=== PATIENT | male | born 1945 | race Hispanic/Latino ===

== ENCOUNTER → 2017-07-03 | Outpatient (CLI) | payer OTHER | END | disposition home or self-care (01) | LOC: OIH 11:37 | PROVIDERS: ATTEND Family Medicine | DX: I10 Essential (primary) hypertension (principal); J47.9 Bronchiectasis, uncomplicated | CPT/HCPCS: 71046 ==

== ENCOUNTER 2018-05-03 07:59 | Day surgery (SDC) | payer OTHER ==
[2018-05-01 09:45] VITALS: BP 148/93
[2018-05-01 09:46] LABS: EOSINOPHILS % (AUTO) 1.3 % (0.0-8.0); LYMPHOCYTES % (AUTO) 23.2 % (21.0-51.0); MEAN CORPUSCULAR HEMOGLOBIN 31.3 pg (27.0-33.0); MEAN CORPUSCULAR HGB CONC 33.2 g/dL (32.0-36.0); MEAN CORPUSCULAR VOLUME 94.2 fL (79-99); MONOCYTES % (AUTO) 7.7 % (3.0-13.0); NEUTROPHILS % (AUTO) 66.8 % (40.0-77.0); PLATELET COUNT (AUTO) 227 K/uL (130-400); RED BLOOD CELL COUNT(AUTO) 5.73 MIL/uL (4.50-6.20); RED CELL DISTRIBUTION WIDTH 15.9 % (11.0-15.5); WHITE BLOOD COUNT (AUTO) 7.5 K/uL (4.8-10.8)
[2018-05-01 09:52] LABS: CREATININE 1.1 mg/dL (0.5-1.5); POTASSIUM 4.5 mmol/L (3.5-5.1)
[2018-05-01 09:58] LABS: INR 0.98 (0.85-1.15); PARTIAL THROMBOPLASTIN TIME 28.5 SEC (26.3-35.5); PROTHROMBIN TIME 10.3 SEC (9.6-11.6)
[~2018-05-03] VITALS: Ht 188 cm; Wt 102.0 kg
[2018-05-03] VITALS (9 sets, daily range): BP systolic 94–131; BP diastolic 54–85
[~2018-05-03 07:59] MED LIST: ALBU0.63 IH; ALBU8.5H8 IH; AMLO5TAB4 PO; APIX5TAB PO; ATOR20TA PO; FURO20TA6 PO; HYDR-4060 PO; LISI40TA4 PO; METO-409 PO; SODIUM CHLORIDE 0.9% 1000ML 1,000 ML IV SCH; TRAZ-185 PO; UMEC1DIS IH
[2018-05-03] MEDS ORDERED: LIDOCAINE HCL 2% 20ML ONE (10:14)
[2018-05-03] MEDS ORDERED: MIDAZOLAM HCL 1 MG/ML 2ML VIAL ONE ×4 (10:38→11:41)
[2018-05-03] MEDS ORDERED: MEPERIDINE-PF 25 MG/ML SYG ONE ×4 (10:38→11:41)
[2018-05-03] MEDS ORDERED: HEPARIN SODIUM 1000UNIT/ML 10ML VIAL ONE (11:13)
== END 2018-05-03 16:15 | disposition home or self-care (01) ==
LOC: DAH 07:59
PROVIDERS: ATTEND Internal Medicine Cardiovascular Disease
DX: I48.3 Typical atrial flutter (principal); I07.1 Rheumatic tricuspid insufficiency; Z79.01 Long term (current) use of anticoagulants; J44.9 Chronic obstructive pulmonary disease, unspecified; I10 Essential (primary) hypertension; E78.5 Hyperlipidemia, unspecified; Z98.890 Other specified postprocedural states; Z79.899 Other long term (current) drug therapy; I45.2 Bifascicular block
CPT/HCPCS: 36415; 80048; 85025; 85610; 85730; 93005; 93613; 93621; 93653; A4606; A4649; C1730 ×2; C1732; C1893; C1894 ×2; J1644 ×2; J2175 ×3; J2250 ×3; J3490; 99156; 99157

== ENCOUNTER → 2019-02-18 | Outpatient (CLI) | payer OTHER ==
[~2019-02-18] MED LIST changes: +IOHEXOL-350 50ML VIAL IV ONE; -SODIUM CHLORIDE 0.9% 1000ML 1,000 ML IV SCH
== END | disposition home or self-care (01) ==
LOC: RAH 08:21
PROVIDERS: ATTEND Urology
DX: N20.0 Calculus of kidney (principal); R31.0 Gross hematuria; M47.815 Spondylosis without myelopathy or radiculopathy, thoracolumbar region; I70.0 Atherosclerosis of aorta; K57.90 Diverticulosis of intestine, part unspecified, without perforation or abscess without bleeding; K43.9 Ventral hernia without obstruction or gangrene; N32.89 Other specified disorders of bladder; N13.30 Unspecified hydronephrosis; N13.4 Hydroureter
CPT/HCPCS: 74178; Q9967

== ENCOUNTER → 2019-04-04 | Outpatient (CLI) | payer OTHER | END | disposition home or self-care (01) | LOC: RAH 12:54 | PROVIDERS: ATTEND Family Medicine | DX: C67.9 Malignant neoplasm of bladder, unspecified (principal); I70.90 Unspecified atherosclerosis; M47.815 Spondylosis without myelopathy or radiculopathy, thoracolumbar region | CPT/HCPCS: 71260; Q9967 ==

== ENCOUNTER → 2019-07-01 | Outpatient (CLI) | payer OTHER ==
[~2019-07-01] MED LIST changes: -IOHEXOL-350 50ML VIAL IV ONE
== END | disposition home or self-care (01) ==
LOC: OIH 09:31
PROVIDERS: ATTEND Family Medicine
DX: M47.816 Spondylosis without myelopathy or radiculopathy, lumbar region (principal); M48.061 Spinal stenosis, lumbar region without neurogenic claudication; M25.78 Osteophyte, vertebrae; M47.812 Spondylosis without myelopathy or radiculopathy, cervical region; M48.02 Spinal stenosis, cervical region; M46.92 Unspecified inflammatory spondylopathy, cervical region; M46.96 Unspecified inflammatory spondylopathy, lumbar region
CPT/HCPCS: 72040; 72100

== ENCOUNTER → 2021-06-24 | Outpatient (CLI) | payer MEDICARE ==
[~2021-06-24] MED LIST changes: -LISI40TA4 PO; +LISI40TA9 PO
== END | disposition home or self-care (01) ==
LOC: RAH 06-18 15:26
PROVIDERS: ATTEND Pain Medicine Interventional Pain Medicine
DX: M47.812 Spondylosis without myelopathy or radiculopathy, cervical region (principal); M54.17 Radiculopathy, lumbosacral region; M51.36 Other intervertebral disc degeneration, lumbar region; Z98.1 Arthrodesis status; Z98.890 Other specified postprocedural states
CPT/HCPCS: 72040; 72100

== ENCOUNTER 2021-09-09 07:52 | Day surgery (SDC) | payer MEDICARE ==
[2021-09-07 12:48] LABS: BASOPHILS % (AUTO) 0.6 % (0.0-5.0); EOSINOPHILS % (AUTO) 0.9 % (0.0-8.0); HEMATOCRIT 45.8 % (42-54); LYMPHOCYTES % (AUTO) 8.4 % (21.0-51.0); MONOCYTES % (AUTO) 10.7 % (3.0-13.0); NEUTROPHILS % (AUTO) 78.8 % (40.0-77.0); PLATELET COUNT (AUTO) 157 K/uL (130-400); RED BLOOD CELL COUNT(AUTO) 4.58 MIL/uL (4.50-6.20); RED CELL DISTRIBUTION WIDTH 13.7 % (11.0-15.5); WHITE BLOOD COUNT (AUTO) 10.6 K/uL (4.8-10.8)
[2021-09-07 13:03] LABS: CREATININE 1.7 mg/dL (0.5-1.5); POTASSIUM 4.2 mmol/L (3.5-5.1)
[2021-09-07 13:44] LABS: INR 0.99 (0.85-1.15); PARTIAL THROMBOPLASTIN TIME 25.6 SEC (26.3-35.5); PROTHROMBIN TIME 10.3 SEC (9.6-11.6)
[2021-09-08 17:51] VITALS: BP 123/54
[2021-09-09] VITALS (9 sets, daily range): BP systolic 146–162; BP diastolic 56–85
[~2021-09-09] VITALS: Ht 185.4 cm; Wt 83.5 kg
[~2021-09-09 07:52] MED LIST changes: +0.9% NACL 500ML IV.SOLN 500 ML IV SCH; -ALBU8.5H8 IH; +ALBUTEROL RESCUE IH; -AMLO5TAB4 PO; +DIAZ5TAB4 PO; +FLUT1BLS3 IH; -FURO20TA6 PO; -HYDR-4060 PO; +HYDR-4064 PO; +KETO10 PO; +TESTOSTERONE IM; -TRAZ-185 PO; -UMEC1DIS IH
[2021-09-09] MEDS ORDERED: 0.9%NACL 1000ML 1,000 ML IV ONE (09:02)
[2021-09-09] MEDS ORDERED: HEPARIN 10,000 UNIT/10ML (1,000 UNIT/ML) VIAL ONE (10:54)
[2021-09-09] MEDS ORDERED: LIDOCAINE HCL 1% MDV 50ML VIAL ONE (10:55)
[2021-09-09] MEDS ORDERED: MIDAZOLAM HCL 1 MG/ML 2ML VIAL ONE ×3 (10:55→13:33)
[2021-09-09] MEDS ORDERED: MEPERIDINE-PF 25 MG/ML SYG ONE ×3 (10:55→13:34)
[2021-09-09] MEDS ORDERED: ISOPROTERENOL HCL 0.2 MG/ML AMP/VIAL/BAG ONE (13:02)
[2021-09-09] MEDS ORDERED: ACETAMINOPHEN 325 MG TAB ONE (15:00)
== END 2021-09-09 17:20 | disposition home or self-care (01) ==
LOC: DAH 07:52
PROVIDERS: ATTEND Internal Medicine Cardiovascular Disease
DX: I48.3 Typical atrial flutter (principal); I45.10 Unspecified right bundle-branch block; I10 Essential (primary) hypertension; J44.9 Chronic obstructive pulmonary disease, unspecified; E78.5 Hyperlipidemia, unspecified; Z87.891 Personal history of nicotine dependence; Z85.51 Personal history of malignant neoplasm of bladder; Z92.21 Personal history of antineoplastic chemotherapy; Z72.89 Other problems related to lifestyle; Z79.01 Long term (current) use of anticoagulants
CPT/HCPCS: 36415; 80048; 85025; 85610; 85730; 93005; 93653; 93662; A4215; A4216; A4221; A4222; A4223 ×3; A4606; A4649 ×2; A4663; C1730; C1732; C1894 ×3; J1644 ×2; J2175 ×3; J2250 ×3; J3490 ×2; J7030 ×2; 99156; 99157

== ENCOUNTER → 2022-04-21 | Outpatient (CLI) | payer MEDICARE ==
[~2022-04-21] MED LIST changes: -0.9% NACL 500ML IV.SOLN 500 ML IV SCH
== END | disposition home or self-care (01) ==
LOC: RAH 08:50
PROVIDERS: ATTEND Family Medicine
DX: R42 Dizziness and giddiness (principal); H53.10 Unspecified subjective visual disturbances
CPT/HCPCS: 93880

== ENCOUNTER 2022-05-02 10:57 | Inpatient (IN) | payer MEDICARE ==
[~2022-05-02] VITALS: Ht 185.4 cm; Wt 80.2 kg
[2022-05-02 12:06] LABS: BASOPHILS % (AUTO) 0.7 % (0.0-5.0); EOSINOPHILS % (AUTO) 1.5 % (0.0-8.0); HEMATOCRIT 48.9 % (42-54); LYMPHOCYTES % (AUTO) 17.4 % (21.0-51.0); MEAN CORPUSCULAR HGB CONC 33.1 g/dL (32.0-36.0); MEAN CORPUSCULAR VOLUME 102.7 fL (79-99); MONOCYTES % (AUTO) 14.4 % (3.0-13.0); PLATELET COUNT (AUTO) 150 K/uL (130-400); RED BLOOD CELL COUNT(AUTO) 4.76 MIL/uL (4.50-6.20); RED CELL DISTRIBUTION WIDTH 13.4 % (11.0-15.5); WHITE BLOOD COUNT (AUTO) 5.3 K/uL (4.8-10.8)
[2022-05-02 12:19] LABS: ALBUMIN 2.9 g/dL (3.5-5.0); CREATININE 1.8 mg/dL (0.5-1.5); TOTAL PROTEIN, SERUM 7.6 g/dL (6.0-8.3)
[2022-05-02] MEDS ORDERED: SOLU-MEDROL 125MG VIAL IVP ONE (14:00)
[2022-05-02] MEDS ORDERED: IPRATROPIUM/ALBUTEROL SULFATE 3 ML SOLUTION IH ONE (14:00)
[2022-05-02] MEDS ORDERED: 0.9% NACL 500ML IV.SOLN 500 ML IV ONE ×2 (14:00→15:00)
[2022-05-02] MEDS ORDERED: ASPIRIN 325MG EC TAB PO ONE (14:00)
[2022-05-02] MEDS ORDERED: CEFTRIAXONE 1G VIAL ONE (14:57)
[2022-05-02] MEDS ORDERED: AZITHROMYCIN 250 MG TABLET PO ONE ×2 (14:58→15:00)
[2022-05-02] MEDS: 0.9%NACL 1000ML 1,000 ML IV ONE ×2 (15:00→15:02)
[2022-05-02] MEDS ORDERED: CEFTRIAXONE 1G VIAL IVP ONE (15:00)
[2022-05-02] MEDS ORDERED: ACETAMINOPHEN 325 MG TAB PO PRN (15:30)
[2022-05-02] MEDS ORDERED: LABETALOL 20MG SYG IV PRN (15:30)
[2022-05-02] MEDS ORDERED: ONDANSETRON 4MG INJ IVP PRN (15:30)
[2022-05-02] MEDS ORDERED: HYDRALAZINE 20MG/ML VIAL IV PRN (15:30)
[2022-05-02] MEDS: INSULIN HUMULIN R 100 UNIT/ML 3ML SQ SCH ×2 (16:30→21:00)
[2022-05-02] MEDS: LACTATED RINGERS 1000ML 1,000 ML IV SCH (17:20)
[2022-05-02] MEDS: IPRATROPIUM 0.5 MG/2.5 ML INH IH SCH ×4 (19:12→23:25)
[2022-05-02] MEDS: DOXYCYCLINE 100MG+NS 250ML IV SCH (21:42)
[2022-05-02] MEDS: FAMOTIDINE 20MG TAB PO SCH (21:42)
[2022-05-02 22:04] LABS: APPEARANCE,URINE CLOUDY (CLEAR); BILIRUBIN,URINE NEGATIVE (NEGATIVE); COLOR,URINE LIGHT-YELLOW (YELLOW); GLUCOSE, URINE (UA) NEGATIVE (NEGATIVE); KETONES,URINE NEGATIVE (NEGATIVE); LEUKOCYTE ESTERASE ,URINE 500 Leu/uL (NEGATIVE); NITRATE,URINE NEGATIVE (NEGATIVE); PH,URINE 7.5 (5.0-8.0); PROTEIN,URINE 50 mg/dL (NEGATIVE); UROBILINOGEN,URINE 0.2 mg/dL (0.2-1.0)
[2022-05-02 22:08] LABS: BACTERIA,URINE FEW /HPF (None Seen); WBC,URINE 51-100 /HPF (0-1)
[2022-05-03] MEDS: METRONIDAZOLE 500MG/100ML BAG 100 ML IVPB SCH ×4 (00:34→21:00)
[2022-05-03 04:42] LABS: BASOPHILS % (AUTO) 0.4 % (0.0-5.0); HEMATOCRIT 43.2 % (42-54); LYMPHOCYTES % (AUTO) 17.2 % (21.0-51.0); MEAN CORPUSCULAR HEMOGLOBIN 34.1 pg (27.0-33.0); MEAN CORPUSCULAR HGB CONC 33.6 g/dL (32.0-36.0); MEAN CORPUSCULAR VOLUME 101.6 fL (79-99); NEUTROPHILS % (AUTO) 77.7 % (40.0-77.0); PLATELET COUNT (AUTO) 151 K/uL (130-400); RED BLOOD CELL COUNT(AUTO) 4.25 MIL/uL (4.50-6.20); RED CELL DISTRIBUTION WIDTH 13.2 % (11.0-15.5); WHITE BLOOD COUNT (AUTO) 2.7 K/uL (4.8-10.8)
[2022-05-03 05:05] LABS: B-TYPE NATRIURETIC PEPTIDE 84 pg/mL (0-100)
[2022-05-03] MEDS: GUAIFENESIN-DM 200/20 MG 10 ML PO PRN (05:09)
[2022-05-03 05:16] LABS: CREATININE 1.7 mg/dL (0.5-1.5); MAGNESIUM 1.9 mg/dL (1.80-2.40); PHOSPHORUS 2.7 mg/dL (2.5-4.9); POTASSIUM 4.7 mmol/L (3.5-5.1); THYROID STIMULATING HORMONE 0.25 uIU/mL (0.36-3.74)
[2022-05-03] MEDS ORDERED: TRAMADOL HCL 50 MG TABLET PO PRN (05:30)
[2022-05-03] MEDS ORDERED: BENZONATATE 100 MG CAPSULE PO PRN (05:30)
[2022-05-03 06:37] LABS: LYMPHOCYTES % (MANUAL) 21 % (22-44); MONOCYTES % (MANUAL) 1 % (2-9); SEGMENTED NEUTROPHILS % 78 % (40-70)
[2022-05-03 06:38] LABS: MAN.DIFF COMMENT-IMPRESSION MANUAL DIFFERENTIAL; PLATELET MORPHOLOGY COMMENT ADEQUATE
[2022-05-03] MEDS: IPRATROPIUM 0.5 MG/2.5 ML INH IH SCH ×3 (07:15→20:36)
[2022-05-03] MEDS: INSULIN HUMULIN R 100 UNIT/ML 3ML SQ SCH ×4 (07:30→21:00)
[2022-05-03] MEDS ORDERED: POTASSIUM CHLORIDE 10% ELIXIR 20 MEQ/15 ML UDCUP PO PRN (08:00)
[2022-05-03] MEDS ORDERED: POTASSIUM CHLORIDE 10MEQ/100ML 100 ML IV PRN (08:00)
[2022-05-03] MEDS ORDERED: GLUCAGON 1MG KIT 1 MG ML IM PRN (08:00)
[2022-05-03] MEDS ORDERED: DEXTROSE 50%-WATER 50 ML DISP.SYRIN IV PRN (08:00)
[2022-05-03] MEDS ORDERED: HYDROCODONE/ACETAMINOPHEN 7.5/325 MG TAB PO PRN (08:00)
[2022-05-03] MEDS ORDERED: KCL 20 MEQ ERTAB PO PRN (08:00)
[2022-05-03] MEDS ORDERED: LIDOCAINE HCL-MPF 1% 2ML VIAL IV PRN (08:00)
[2022-05-03] MEDS ORDERED: MAGNESIUM 2GM PREMIX 50ML 50 ML IV PRN (08:00)
[2022-05-03] MEDS: **HM**(Fluticasone/Umeclidin/Vilanter (Trelegy Ellipta 100-62.5- IH SCH (09:00)
[2022-05-03] MEDS ORDERED: ENOXAPARIN SODIUM 40 MG/0.4 ML SYRINGE SQ SCH (09:00)
[2022-05-03] MEDS: PREDNISONE 20 MG TABLET PO SCH (09:11)
[2022-05-03] MEDS: CEFEPIME HCL 1 GM VIAL IVP SCH (09:11)
[2022-05-03] MEDS: METOPROLOL SUCCINATE 50 MG TAB.SR.24H PO SCH (09:11)
[2022-05-03] MEDS: FAMOTIDINE 20MG TAB PO SCH ×2 (09:12→20:59)
[2022-05-03] MEDS: LISINOPRIL 40 MG TABLET PO SCH (09:12)
[2022-05-03 10:15] VITALS: BP 123/59
[2022-05-03] MEDS ORDERED: INSULIN HUMULIN R 100 UNIT/ML 3ML SQ SCH (11:30)
[2022-05-03 16:00] VITALS: BP 142/71
[2022-05-03] MEDS ORDERED: 0.9% NACL 250ML 250 ML ONE (16:13)
[2022-05-03] MEDS: DOXYCYCLINE 100MG+NS 250ML IV SCH ×2 (16:17→20:59)
[2022-05-03 20:00] VITALS: BP 137/73
[2022-05-03] MEDS: ATORVASTATIN 20 MG TABLET PO SCH (20:59)
[2022-05-03] MEDS: LACTATED RINGERS 1000ML 1,000 ML IV SCH (20:59)
[2022-05-03] MEDS: APIXABAN 5 MG TABLET PO SCH (21:00)
[2022-05-03] MEDS ORDERED: GUAIFENESIN-CODEINE 5 ML SYRUP PO PRN (22:30)
[2022-05-03] MEDS ORDERED: SOLU-MEDROL 40MG VIAL IVP ONE (22:30)
[2022-05-03] MEDS ORDERED: SOLU-MEDROL 40MG VIAL ONE (22:54)
[2022-05-04] VITALS: BP 153/71
[2022-05-04] MEDS: APIXABAN 5 MG TABLET PO SCH ×3 (01:30→20:32)
[2022-05-04] MEDS: IPRATROPIUM 0.5 MG/2.5 ML INH IH SCH ×5 (01:45→23:21)
[2022-05-04 04:00] VITALS: BP 149/67
[2022-05-04] MEDS: METRONIDAZOLE 500MG/100ML BAG 100 ML IVPB SCH ×2 (04:37→15:09)
[2022-05-04] MEDS: INSULIN HUMULIN R 100 UNIT/ML 3ML SQ SCH ×4 (05:16→19:51)
[2022-05-04 05:27] LABS: HEMATOCRIT 41.8 % (42-54); MEAN CORPUSCULAR HEMOGLOBIN 34.7 pg (27.0-33.0); MEAN CORPUSCULAR HGB CONC 33.5 g/dL (32.0-36.0); MEAN CORPUSCULAR VOLUME 103.5 fL (79-99); MONOCYTES % (AUTO) 2.8 % (3.0-13.0); NEUTROPHILS % (AUTO) 89.5 % (40.0-77.0); PLATELET COUNT (AUTO) 190 K/uL (130-400); RED BLOOD CELL COUNT(AUTO) 4.04 MIL/uL (4.50-6.20); RED CELL DISTRIBUTION WIDTH 13.1 % (11.0-15.5); WHITE BLOOD COUNT (AUTO) 8.7 K/uL (4.8-10.8)
[2022-05-04 05:36] LABS: INR 1.02 (0.85-1.15); PROTHROMBIN TIME 11.1 SEC (9.6-11.6)
[2022-05-04 05:37] LABS: PARTIAL THROMBOPLASTIN TIME 31.6 SEC (26.3-35.5)
[2022-05-04 05:45] LABS: ALBUMIN 2.6 g/dL (3.5-5.0); CREATININE 1.5 mg/dL (0.5-1.5); MAGNESIUM 2.2 mg/dL (1.80-2.40); POTASSIUM 4.6 mmol/L (3.5-5.1); TOTAL PROTEIN, SERUM 6.5 g/dL (6.0-8.3)
[2022-05-04 07:30] VITALS: BP 152/69
[2022-05-04] MEDS: METOPROLOL SUCCINATE 50 MG TAB.SR.24H PO SCH (09:00)
[2022-05-04] MEDS: **HM**(Fluticasone/Umeclidin/Vilanter (Trelegy Ellipta 100-62.5- IH SCH (09:00)
[2022-05-04] MEDS: GUAIFENESIN-DM 200/20 MG 10 ML PO PRN (10:59)
[2022-05-04] MEDS: PREDNISONE 20 MG TABLET PO SCH (10:59)
[2022-05-04] MEDS: FAMOTIDINE 20MG TAB PO SCH ×2 (10:59→20:32)
[2022-05-04] MEDS: CEFEPIME HCL 1 GM VIAL IVP SCH (10:59)
[2022-05-04] MEDS: LISINOPRIL 40 MG TABLET PO SCH (10:59)
[2022-05-04 11:00] VITALS: BP 149/55
[2022-05-04] MEDS: BUDESONIDE 0.5 MG/2 ML INH IH SCH ×2 (11:44→19:10)
[2022-05-04] MEDS: DOXYCYCLINE 100MG+NS 250ML IV SCH ×2 (12:25→20:32)
[2022-05-04] MEDS ORDERED: IOHEXOL 350 MG/ML 100ML INFUS..BTL IV ONE (15:15)
[2022-05-04 16:00] VITALS: BP 153/74
[2022-05-04 20:09] VITALS: BP 138/67
[2022-05-04] MEDS: ATORVASTATIN 20 MG TABLET PO SCH (20:32)
[2022-05-04] MEDS: 0.9%NACL 1000ML 1,000 ML IV SCH (21:57)
[2022-05-04] MEDS ORDERED: PRED20TA3 PO (22:06)
[2022-05-04] MEDS ORDERED: IPRA3AMP24 IH (22:06)
[2022-05-04] MEDS ORDERED: LEVO-70 PO (22:06)
[2022-05-05 03:50] VITALS: BP 150/77
[2022-05-05 05:09] LABS: HEMATOCRIT 40.8 % (42-54); LYMPHOCYTES % (AUTO) 10.4 % (21.0-51.0); MEAN CORPUSCULAR HEMOGLOBIN 33.7 pg (27.0-33.0); MEAN CORPUSCULAR HGB CONC 32.8 g/dL (32.0-36.0); MEAN CORPUSCULAR VOLUME 102.5 fL (79-99); MONOCYTES % (AUTO) 6.2 % (3.0-13.0); NEUTROPHILS % (AUTO) 82.9 % (40.0-77.0); PLATELET COUNT (AUTO) 201 K/uL (130-400); RED BLOOD CELL COUNT(AUTO) 3.98 MIL/uL (4.50-6.20); RED CELL DISTRIBUTION WIDTH 13.2 % (11.0-15.5); WHITE BLOOD COUNT (AUTO) 8.4 K/uL (4.8-10.8)
[2022-05-05 05:26] LABS: ALBUMIN 2.5 g/dL (3.5-5.0); CREATININE 1.7 mg/dL (0.5-1.5); POTASSIUM 4.2 mmol/L (3.5-5.1)
[2022-05-05] MEDS: INSULIN HUMULIN R 100 UNIT/ML 3ML SQ SCH (06:24)
[2022-05-05] MEDS: IPRATROPIUM 0.5 MG/2.5 ML INH IH SCH (07:10)
[2022-05-05] MEDS: BUDESONIDE 0.5 MG/2 ML INH IH SCH (07:10)
[2022-05-05] MEDS: **HM**(Fluticasone/Umeclidin/Vilanter (Trelegy Ellipta 100-62.5- IH SCH (07:41)
[2022-05-05 08:00] VITALS: BP 133/73
[2022-05-05] MEDS: METOPROLOL SUCCINATE 50 MG TAB.SR.24H PO SCH (08:12)
[2022-05-05] MEDS: LISINOPRIL 40 MG TABLET PO SCH (08:12)
[2022-05-05] MEDS: PREDNISONE 20 MG TABLET PO SCH (08:12)
[2022-05-05] MEDS: FAMOTIDINE 20MG TAB PO SCH (08:12)
[2022-05-05] MEDS: APIXABAN 5 MG TABLET PO SCH (08:12)
[2022-05-05] MEDS: 0.9%NACL 1000ML 1,000 ML IV SCH (10:49)
== END 2022-05-05 13:52 | disposition home or self-care (01) | DRG 190 ==
LOC: EDH 10:57 → EDHIP 15:22 → OBSVTOIN 15:22 → EDHIP 05-03 05:08 → 4AH 05-03 10:10
PROVIDERS: ADMIT Internal Medicine Critical Care Medicine; ATTEND Internal Medicine Critical Care Medicine
DX: J44.1 Chronic obstructive pulmonary disease with (acute) exacerbation (principal); J18.9 Pneumonia, unspecified organism; I48.92 Unspecified atrial flutter; Z16.24 Resistance to multiple antibiotics; N39.0 Urinary tract infection, site not specified; Z20.822 Contact with and (suspected) exposure to COVID-19; E86.0 Dehydration; J44.0 Chronic obstructive pulmonary disease with (acute) lower respiratory infection; E05.90 Thyrotoxicosis, unspecified without thyrotoxic crisis or storm; N18.30 Chronic kidney disease, stage 3 unspecified; I12.9 Hypertensive chronic kidney disease with stage 1 through stage 4 chronic kidney disease, or unspecified chronic kidney disease; F17.200 Nicotine dependence, unspecified, uncomplicated; E78.5 Hyperlipidemia, unspecified; F43.10 Post-traumatic stress disorder, unspecified; Z85.51 Personal history of malignant neoplasm of bladder; Z85.46 Personal history of malignant neoplasm of prostate; Z90.11 Acquired absence of right breast and nipple
CPT/HCPCS: 36415; 71045; 71275; 76536; 80048; 80053; 81001; 82550; 82948; 83605; 83735; 83874; 83880; 84100; 84145; 84443; 84484; 85025; 85378; 85610; 85730; 86738; 87071; 87077; 87088; 87186; 87205; 87449; 87635; 87804; 93005; 94640; 94664; 94667; 94668; 94760; C9803; G0378; J0692; J0696; J1650; J2920; J2930; J3475; J3490; J7030; J7050; Q9967

== ENCOUNTER 2022-05-17 15:44 | Emergency (ER) | payer OTHER, MEDICARE ==
[~2022-05-17] VITALS: Ht 185.4 cm; Wt 79.4 kg
[~2022-05-17 15:44] MED LIST changes: +IPRA3AMP24 IH; -KETO10 PO; +LEVO-70 PO; +PRED20TA3 PO
[2022-05-17 16:59] LABS: BASOPHILS % (AUTO) 0.1 % (0.0-5.0); LYMPHOCYTES % (AUTO) 5.6 % (21.0-51.0); MEAN CORPUSCULAR HEMOGLOBIN 33.6 pg (27.0-33.0); MEAN CORPUSCULAR HGB CONC 33.3 g/dL (32.0-36.0); MEAN CORPUSCULAR VOLUME 100.7 fL (79-99); MONOCYTES % (AUTO) 4.9 % (3.0-13.0); NEUTROPHILS % (AUTO) 88.4 % (40.0-77.0); PLATELET COUNT (AUTO) 196 K/uL (130-400); RED BLOOD CELL COUNT(AUTO) 4.17 MIL/uL (4.50-6.20); WHITE BLOOD COUNT (AUTO) 9.1 K/uL (4.8-10.8)
[2022-05-17 17:17] LABS: CREATININE 1.8 mg/dL (0.5-1.5); POTASSIUM 5.1 mmol/L (3.5-5.1)
[2022-05-17 17:27] LABS: ALBUMIN 3.1 g/dL (3.5-5.0); TOTAL PROTEIN, SERUM 6.6 g/dL (6.0-8.3)
[2022-05-17 18:04] VITALS: BP 123/67
== END 2022-05-17 18:04 | disposition home or self-care (01) ==
LOC: EDH 15:44
DX: R42 Dizziness and giddiness (principal); E78.00 Pure hypercholesterolemia, unspecified; I10 Essential (primary) hypertension; J44.9 Chronic obstructive pulmonary disease, unspecified; Z79.01 Long term (current) use of anticoagulants; Z79.52 Long term (current) use of systemic steroids; Z79.899 Other long term (current) drug therapy
CPT/HCPCS: 36415; 80053; 84484; 85025; 93005

== ENCOUNTER 2022-05-30 01:39 | Observation (INO) | payer MEDICARE, OTHER ==
[~2022-05-30] VITALS: Ht 185.4 cm; Wt 79.7 kg
[2022-05-30 01:54] LABS: BASOPHILS % (AUTO) 0.6 % (0.0-5.0); EOSINOPHILS % (AUTO) 5.6 % (0.0-8.0); HEMATOCRIT 42.1 % (42-54); LYMPHOCYTES % (AUTO) 11.1 % (21.0-51.0); MEAN CORPUSCULAR HEMOGLOBIN 33.8 pg (27.0-33.0); MEAN CORPUSCULAR HGB CONC 32.5 g/dL (32.0-36.0); MONOCYTES % (AUTO) 10.5 % (3.0-13.0); NEUTROPHILS % (AUTO) 71.9 % (40.0-77.0); PLATELET COUNT (AUTO) 202 K/uL (130-400); RED BLOOD CELL COUNT(AUTO) 4.05 MIL/uL (4.50-6.20); RED CELL DISTRIBUTION WIDTH 14.8 % (11.0-15.5); WHITE BLOOD COUNT (AUTO) 6.4 K/uL (4.8-10.8)
[2022-05-30] MEDS ORDERED: IPRATROPIUM/ALBUTEROL SULFATE 3 ML SOLUTION IH ONE (02:00)
[2022-05-30 02:09] LABS: CREATININE 1.6 mg/dL (0.5-1.5); POTASSIUM 4.4 mmol/L (3.5-5.1)
[2022-05-30 02:16] LABS: ALBUMIN 2.9 g/dL (3.5-5.0); TOTAL PROTEIN, SERUM 6.2 g/dL (6.0-8.3)
[2022-05-30] MEDS ORDERED: ONDANSETRON 4MG INJ IVP PRN (04:30)
[2022-05-30] MEDS ORDERED: CEFTRIAXONE 1G VIAL IVP ONE (04:30)
[2022-05-30] MEDS ORDERED: HYDRALAZINE 20MG/ML VIAL IV PRN (04:30)
[2022-05-30] MEDS ORDERED: CLONIDINE HCL 0.1 MG TABLET PO PRN (04:30)
[2022-05-30] MEDS ORDERED: AZITHROMYCIN 500MG+NS 250ML IVPB SCH (04:30)
[2022-05-30] MEDS ORDERED: IPRATROPIUM 0.5 MG/2.5 ML INH IH PRN (04:30)
[2022-05-30] MEDS ORDERED: ALBUTEROL 0.083% 2.5 MG/3 ML INH IH PRN (04:30)
[2022-05-30] MEDS ORDERED: ACETAMINOPHEN 325 MG TAB PO PRN (04:30)
[2022-05-30] MEDS ORDERED: LACTULOSE 20 GM/30 ML UDCUP PO PRN (04:30)
[2022-05-30] MEDS ORDERED: SOLU-MEDROL 125MG VIAL IVP ONE ×2 (04:30)
[2022-05-30 05:20] VITALS: BP 150/72
[2022-05-30] MEDS ORDERED: METO-409 PO (06:22)
[2022-05-30] MEDS ORDERED: ALBU0.63 IH (06:22)
[2022-05-30] MEDS ORDERED: TRAZ-185 PO (06:22)
[2022-05-30] MEDS ORDERED: AMLO-257 PO (06:22)
[2022-05-30] MEDS ORDERED: DEXA1TAB PO (06:22)
[2022-05-30] MEDS: IPRATROPIUM/ALBUTEROL SULFATE 3 ML SOLUTION IH SCH ×5 (07:05→22:17)
[2022-05-30 07:30] VITALS: BP 146/71
[2022-05-30] MEDS: DOCUSATE SODIUM 100 MG CAP PO SCH ×2 (09:09→20:25)
[2022-05-30 11:30] VITALS: BP 139/88
[2022-05-30 15:30] VITALS: BP 166/73
[2022-05-30] MEDS ORDERED: SOLU-MEDROL 40MG VIAL IVP SCH (18:00)
[2022-05-30 20:00] VITALS: BP 158/74
[2022-05-30] MEDS: TRAZODONE HCL 50 MG TAB PO SCH (20:24)
[2022-05-30] MEDS: METOPROLOL SUCCINATE 50 MG TAB.SR.24H PO SCH (20:24)
[2022-05-30] MEDS: APIXABAN 5 MG TABLET PO SCH (20:24)
[2022-05-30] MEDS: FAMOTIDINE 20MG VIAL IV SCH (20:25)
[2022-05-30] MEDS: SOLU-MEDROL 40MG VIAL IVP SCH (21:09)
[2022-05-30] MEDS: DIAZEPAM 5 MG TABLET PO SCH (21:12)
[2022-05-31] VITALS: BP 154/67
[2022-05-31] MEDS: IPRATROPIUM/ALBUTEROL SULFATE 3 ML SOLUTION IH SCH ×6 (02:05→22:41)
[2022-05-31 04:00] VITALS: BP 153/77
[2022-05-31] MEDS: SOLU-MEDROL 40MG VIAL IVP SCH ×3 (05:04→21:50)
[2022-05-31 05:27] LABS: HEMATOCRIT 37.8 % (42-54); MEAN CORPUSCULAR HEMOGLOBIN 33.5 pg (27.0-33.0); MEAN CORPUSCULAR VOLUME 104.7 fL (79-99); RED BLOOD CELL COUNT(AUTO) 3.61 MIL/uL (4.50-6.20); RED CELL DISTRIBUTION WIDTH 14.9 % (11.0-15.5); WHITE BLOOD COUNT (AUTO) 4.5 K/uL (4.8-10.8)
[2022-05-31 05:42] LABS: CREATININE 1.5 mg/dL (0.5-1.5); MAGNESIUM 1.7 mg/dL (1.80-2.40); PHOSPHORUS 3.6 mg/dL (2.5-4.9); POTASSIUM 4.5 mmol/L (3.5-5.1)
[2022-05-31 08:00] VITALS: BP 165/72
[2022-05-31] MEDS: DIAZEPAM 5 MG TABLET PO SCH (09:00)
[2022-05-31] MEDS ORDERED: ENOXAPARIN SODIUM 30 MG/0.3 ML SQ SCH (09:00)
[2022-05-31] MEDS ORDERED: DIAZEPAM 5 MG TABLET PO SCH ×2 (09:00→21:00)
[2022-05-31] MEDS: DOCUSATE SODIUM 100 MG CAP PO SCH ×2 (09:42→20:30)
[2022-05-31] MEDS: AZITHROMYCIN 500MG+NS 250ML IV SCH (09:42)
[2022-05-31] MEDS: APIXABAN 5 MG TABLET PO SCH ×2 (09:43→20:29)
[2022-05-31] MEDS: LISINOPRIL 40 MG TABLET PO SCH (09:43)
[2022-05-31] MEDS: AMLODIPINE 5 MG TAB PO SCH (09:43)
[2022-05-31] MEDS: METOPROLOL SUCCINATE 50 MG TAB.SR.24H PO SCH ×2 (09:43→20:29)
[2022-05-31] MEDS: ATORVASTATIN 20 MG TABLET PO SCH (09:43)
[2022-05-31] MEDS: FAMOTIDINE 20MG VIAL IV SCH ×2 (09:46→20:26)
[2022-05-31 12:00] VITALS: BP 142/65
[2022-05-31] MEDS ORDERED: ALBU2.5V2 IH (15:33)
[2022-05-31] MEDS ORDERED: ALBUHFA IH (15:33)
[2022-05-31 16:00] VITALS: BP 155/69
[2022-05-31] MEDS ORDERED: LIDOCAINE HCL-MPF 1% 2ML VIAL IV PRN ×2 (17:30)
[2022-05-31] MEDS ORDERED: MAGNESIUM 2GM PREMIX 50ML 50 ML IV PRN (17:30)
[2022-05-31] MEDS ORDERED: POTASSIUM CHLORIDE 10% ELIXIR 20 MEQ/15 ML UDCUP PO PRN (17:30)
[2022-05-31] MEDS ORDERED: KCL 20 MEQ ERTAB PO PRN (17:30)
[2022-05-31] MEDS ORDERED: POTASSIUM CHLORIDE 20MEQ/100ML 100 ML IV PRN ×2 (17:30)
[2022-05-31 20:00] VITALS: BP 152/68
[2022-05-31] MEDS: TRAZODONE HCL 50 MG TAB PO SCH (20:29)
[2022-06-01] VITALS: BP 160/71
[2022-06-01] MEDS: IPRATROPIUM/ALBUTEROL SULFATE 3 ML SOLUTION IH SCH ×3 (02:23→10:11)
[2022-06-01 04:00] VITALS: BP 170/74
[2022-06-01] MEDS: SOLU-MEDROL 40MG VIAL IVP SCH (06:03)
[2022-06-01 08:00] VITALS: BP 149/73
[2022-06-01] MEDS: DOCUSATE SODIUM 100 MG CAP PO SCH (09:00)
[2022-06-01] MEDS: APIXABAN 5 MG TABLET PO SCH (09:24)
[2022-06-01] MEDS: ATORVASTATIN 20 MG TABLET PO SCH (09:24)
[2022-06-01] MEDS: LISINOPRIL 40 MG TABLET PO SCH (09:24)
[2022-06-01] MEDS: AMLODIPINE 5 MG TAB PO SCH (09:24)
[2022-06-01] MEDS: METOPROLOL SUCCINATE 50 MG TAB.SR.24H PO SCH (09:24)
[2022-06-01] MEDS: AZITHROMYCIN 500MG+NS 250ML IV SCH (09:25)
[2022-06-01] MEDS: FAMOTIDINE 20MG VIAL IV SCH (09:25)
[2022-06-01 11:00] VITALS: BP 127/77
[2022-06-01] MEDS ORDERED: AZIT500T4 PO (14:11)
[2022-06-01] MEDS ORDERED: AMOX-426 PO (14:11)
== END 2022-06-01 15:20 | disposition home or self-care (01) ==
LOC: EDH 01:39 → EDHIP 04:07 → 3BH 04:56
PROVIDERS: ADMIT Internal Medicine Critical Care Medicine; ATTEND Internal Medicine Critical Care Medicine
DX: J96.21 Acute and chronic respiratory failure with hypoxia (principal); Z20.822 Contact with and (suspected) exposure to COVID-19; J44.1 Chronic obstructive pulmonary disease with (acute) exacerbation; I65.22 Occlusion and stenosis of left carotid artery; E78.5 Hyperlipidemia, unspecified; I48.92 Unspecified atrial flutter; F43.10 Post-traumatic stress disorder, unspecified; I11.0 Hypertensive heart disease with heart failure; I50.9 Heart failure, unspecified; I48.91 Unspecified atrial fibrillation; F17.210 Nicotine dependence, cigarettes, uncomplicated; Z90.11 Acquired absence of right breast and nipple; Z85.51 Personal history of malignant neoplasm of bladder; Z85.46 Personal history of malignant neoplasm of prostate; Z98.1 Arthrodesis status; Z79.899 Other long term (current) drug therapy
CPT/HCPCS: 94640 ×15; 96376 ×3; 96365; 96366 ×3; 96375; 99285; 84484; 80053; 85025; 87804 ×2; 36415 ×2; 87635; 71045; 71250; 93005; 94664; 96367; 83735; 84100; 80048; 85027; 94760 ×3; 97161; G0378 ×55; C9803; J3490 ×5; J2930; J0696; J2920 ×5; J0456 ×3; J3475

== ENCOUNTER 2022-06-13 14:22 | Observation (INO) | payer MEDICARE ==
[~2022-06-13] VITALS: Ht 185.4 cm; Wt 80.0 kg
[~2022-06-13 14:22] MED LIST changes: -ALBU0.63 IH; +ALBU2.5V2 IH; +ALBUHFA IH; -ALBUTEROL RESCUE IH; +AMLO-257 PO; +AMOX-426 PO; +AZIT500T4 PO; +DEXA1TAB PO; -IPRA3AMP24 IH; -LEVO-70 PO; -PRED20TA3 PO; -TESTOSTERONE IM; +TRAZ-185 PO
[2022-06-13 15:02] LABS: BASOPHILS % (AUTO) 0.5 % (0.0-5.0); EOSINOPHILS % (AUTO) 0.1 % (0.0-8.0); HEMATOCRIT 29.4 % (42-54); LYMPHOCYTES % (AUTO) 9.2 % (21.0-51.0); MEAN CORPUSCULAR HEMOGLOBIN 34.1 pg (27.0-33.0); MEAN CORPUSCULAR HGB CONC 31.6 g/dL (32.0-36.0); MEAN CORPUSCULAR VOLUME 107.7 fL (79-99); MONOCYTES % (AUTO) 5.2 % (3.0-13.0); NEUTROPHILS % (AUTO) 84.2 % (40.0-77.0); PLATELET COUNT (AUTO) 215 K/uL (130-400); RED BLOOD CELL COUNT(AUTO) 2.73 MIL/uL (4.50-6.20); RED CELL DISTRIBUTION WIDTH 15.9 % (11.0-15.5); WHITE BLOOD COUNT (AUTO) 8.8 K/uL (4.8-10.8)
[2022-06-13 15:11] LABS: CREATININE 1.9 mg/dL (0.5-1.5)
[2022-06-13 15:21] LABS: ALBUMIN 2.6 g/dL (3.5-5.0); TOTAL PROTEIN, SERUM 5.1 g/dL (6.0-8.3)
[2022-06-13] MEDS ORDERED: HYDRALAZINE 20MG/ML VIAL IV PRN (17:00)
[2022-06-13] MEDS ORDERED: LABETALOL 20MG SYG IV PRN (17:00)
[2022-06-13] MEDS ORDERED: ACETAMINOPHEN 325 MG TAB PO PRN (17:00)
[2022-06-13] MEDS ORDERED: ONDANSETRON 4MG INJ IVP PRN (17:00)
[2022-06-13] MEDS ORDERED: LACTULOSE 20 GM/30 ML UDCUP PO PRN (17:00)
[2022-06-13] MEDS: ALBUTEROL 0.083% 2.5 MG/3 ML INH IH PRN (17:33)
[2022-06-13 18:06] LABS: APPEARANCE,URINE CLEAR (CLEAR); BILIRUBIN,URINE NEGATIVE (NEGATIVE); COLOR,URINE YELLOW (YELLOW); GLUCOSE, URINE (UA) NEGATIVE (NEGATIVE); KETONES,URINE NEGATIVE (NEGATIVE); LEUKOCYTE ESTERASE ,URINE 250 Leu/uL (NEGATIVE); NITRATE,URINE 2+ (NEGATIVE); OCCULT BLOOD,URINE NEGATIVE (NEGATIVE); PROTEIN,URINE 20 mg/dL (NEGATIVE); UROBILINOGEN,URINE 0.2 mg/dL (0.2-1.0)
[2022-06-13 18:14] LABS: BACTERIA,URINE RARE /HPF (None Seen); MUCUS,URINE RARE LPF (None Seen); WBC,URINE 51-100 /HPF (0-1)
[2022-06-13] MEDS: INSULIN HUMULIN R 100 UNIT/ML 3ML SQ SCH (21:00)
[2022-06-13] MEDS: FAMOTIDINE 20MG TAB PO SCH (22:09)
[2022-06-13 23:25] VITALS: BP 126/54
[2022-06-14 00:17] LABS: ABG BASE EXCESS 1.2 mmol/L (-2.0-3.0); ABG HCO3 26.4 mmol/L (21.0-28.0); ABG OXYGEN SATURATION 96.2 % (95.0-99.0); ABG PCO2 44 mmHg (35-48)
[2022-06-14] MEDS: ALBUTEROL 0.083% 2.5 MG/3 ML INH IH PRN (00:18)
[2022-06-14] MEDS: IPRATROPIUM 0.5 MG/2.5 ML INH IH SCH ×5 (00:29→23:01)
[2022-06-14 04:00] VITALS: BP 142/58
[2022-06-14 04:05] VITALS: BP 135/62
[2022-06-14 04:08] VITALS: BP 99/55
[2022-06-14] MEDS ORDERED: ALBUTEROL 0.042% 1.25MG/3ML IH PRN (04:30)
[2022-06-14] MEDS ORDERED: GUAIFENESIN-DM 200/20 MG 10 ML PO PRN (05:00)
[2022-06-14 05:32] LABS: BASOPHILS % (AUTO) 0.9 % (0.0-5.0); EOSINOPHILS % (AUTO) 0.9 % (0.0-8.0); HEMATOCRIT 28.3 % (42-54); LYMPHOCYTES % (AUTO) 24.5 % (21.0-51.0); MEAN CORPUSCULAR HEMOGLOBIN 34.1 pg (27.0-33.0); MEAN CORPUSCULAR HGB CONC 31.4 g/dL (32.0-36.0); MEAN CORPUSCULAR VOLUME 108.4 fL (79-99); NEUTROPHILS % (AUTO) 64.9 % (40.0-77.0); PLATELET COUNT (AUTO) 196 K/uL (130-400); RED BLOOD CELL COUNT(AUTO) 2.61 MIL/uL (4.50-6.20); RED CELL DISTRIBUTION WIDTH 15.8 % (11.0-15.5); WHITE BLOOD COUNT (AUTO) 6.4 K/uL (4.8-10.8)
[2022-06-14 05:57] LABS: CREATININE 1.6 mg/dL (0.5-1.5); MAGNESIUM 1.9 mg/dL (1.80-2.40); PHOSPHORUS 3.2 mg/dL (2.5-4.9); POTASSIUM 4.3 mmol/L (3.5-5.1); THYROID STIMULATING HORMONE 1.33 uIU/mL (0.36-3.74)
[2022-06-14 06:11] LABS: B-TYPE NATRIURETIC PEPTIDE 165 pg/mL (0-100)
[2022-06-14] MEDS: INSULIN HUMULIN R 100 UNIT/ML 3ML SQ SCH ×4 (06:15→21:00)
[2022-06-14] MEDS: SOLU-MEDROL 40MG VIAL IVP SCH ×3 (06:23→21:41)
[2022-06-14] MEDS: DOXYCYCLINE 100MG+NS 250ML IV SCH ×2 (06:23→17:36)
[2022-06-14 07:30] VITALS: BP 151/75
[2022-06-14] MEDS: AMLODIPINE 5 MG TAB PO SCH (08:26)
[2022-06-14] MEDS: ENOXAPARIN SODIUM 30 MG/0.3 ML SQ SCH (08:26)
[2022-06-14] MEDS: FAMOTIDINE 20MG TAB PO SCH ×2 (08:26→21:41)
[2022-06-14] MEDS: LISINOPRIL 40 MG TABLET PO SCH (08:27)
[2022-06-14] MEDS: METOPROLOL SUCCINATE 50 MG TAB.SR.24H PO SCH ×2 (08:27→21:41)
[2022-06-14] MEDS ORDERED: DIAZEPAM 5 MG TABLET PO SCH ×2 (09:00→21:00)
[2022-06-14] MEDS ORDERED: GADOTERATE MEGLUMINE 10 MMOL/20 ML VIAL IV ONE (11:32)
[2022-06-14 15:30] VITALS: BP 132/56
[2022-06-14 20:00] VITALS: BP 111/58
[2022-06-14] MEDS ORDERED: TRAZODONE HCL 50 MG TAB PO SCH (21:00)
[2022-06-14] MEDS ORDERED: **HM** TRELEGY ELLIPTA IH SCH (21:00)
[2022-06-15] VITALS: BP 121/52
[2022-06-15 04:00] VITALS: BP 137/68
[2022-06-15] MEDS: DOXYCYCLINE 100MG+NS 250ML IV SCH (04:12)
[2022-06-15] MEDS: SOLU-MEDROL 40MG VIAL IVP SCH ×2 (04:12→14:23)
[2022-06-15 05:10] LABS: BASOPHILS % (AUTO) 0.2 % (0.0-5.0); HEMATOCRIT 28.5 % (42-54); LYMPHOCYTES % (AUTO) 9.6 % (21.0-51.0); MEAN CORPUSCULAR HEMOGLOBIN 33.3 pg (27.0-33.0); MEAN CORPUSCULAR HGB CONC 32.3 g/dL (32.0-36.0); MEAN CORPUSCULAR VOLUME 103.3 fL (79-99); MONOCYTES % (AUTO) 1.9 % (3.0-13.0); NEUTROPHILS % (AUTO) 87.4 % (40.0-77.0); PLATELET COUNT (AUTO) 201 K/uL (130-400); RED BLOOD CELL COUNT(AUTO) 2.76 MIL/uL (4.50-6.20); RED CELL DISTRIBUTION WIDTH 15.1 % (11.0-15.5); WHITE BLOOD COUNT (AUTO) 5.7 K/uL (4.8-10.8)
[2022-06-15 05:21] LABS: CREATININE 1.4 mg/dL (0.5-1.5); MAGNESIUM 1.7 mg/dL (1.80-2.40); PHOSPHORUS 2.8 mg/dL (2.5-4.9); POTASSIUM 4.7 mmol/L (3.5-5.1)
[2022-06-15] MEDS: IPRATROPIUM 0.5 MG/2.5 ML INH IH SCH ×2 (06:07→11:03)
[2022-06-15] MEDS: INSULIN HUMULIN R 100 UNIT/ML 3ML SQ SCH ×3 (06:17→16:24)
[2022-06-15 08:00] VITALS: BP 143/70
[2022-06-15] MEDS ORDERED: ATORVASTATIN 20 MG TABLET PO SCH (09:00)
[2022-06-15] MEDS: METOPROLOL SUCCINATE 50 MG TAB.SR.24H PO SCH (10:02)
[2022-06-15] MEDS: AMLODIPINE 5 MG TAB PO SCH (10:02)
[2022-06-15] MEDS: FAMOTIDINE 20MG TAB PO SCH (10:02)
[2022-06-15] MEDS: LISINOPRIL 40 MG TABLET PO SCH (10:02)
[2022-06-15] MEDS: ENOXAPARIN SODIUM 30 MG/0.3 ML SQ SCH (10:02)
[2022-06-15] MEDS ORDERED: PIND10TA2 PO (11:03)
[2022-06-15] MEDS ORDERED: MAGNESIUM 2GM PREMIX 50ML 50 ML IV PRN (11:30)
[2022-06-15 11:59] VITALS: BP 142/76
== END 2022-06-15 17:05 | disposition home or self-care (01) ==
LOC: EDH 14:22 → EDHIP 16:54 → 3CH 23:25
PROVIDERS: ADMIT Internal Medicine; ATTEND Internal Medicine
DX: R55 Syncope and collapse (principal); I48.92 Unspecified atrial flutter; R25.1 Tremor, unspecified; J44.1 Chronic obstructive pulmonary disease with (acute) exacerbation; R91.1 Solitary pulmonary nodule; I10 Essential (primary) hypertension; I65.23 Occlusion and stenosis of bilateral carotid arteries; G51.0 Bell's palsy; J96.21 Acute and chronic respiratory failure with hypoxia; F43.10 Post-traumatic stress disorder, unspecified; R29.700 NIHSS score 0; E78.5 Hyperlipidemia, unspecified; F17.200 Nicotine dependence, unspecified, uncomplicated; Z79.899 Other long term (current) drug therapy; Z98.890 Other specified postprocedural states; Z85.46 Personal history of malignant neoplasm of prostate; Z85.51 Personal history of malignant neoplasm of bladder; Z90.11 Acquired absence of right breast and nipple; Z92.21 Personal history of antineoplastic chemotherapy; Z98.41 Cataract extraction status, right eye; Z98.42 Cataract extraction status, left eye; Z79.82 Long term (current) use of aspirin; Z98.1 Arthrodesis status; X50.1XXA Overexertion from prolonged static or awkward postures, initial encounter; Y92.89 Other specified places as the place of occurrence of the external cause; Y93.89 Activity, other specified; Y99.8 Other external cause status
CPT/HCPCS: 84484; 80053; 85025 ×3; 87077; 87088; 87186; 82270; 81001; 36415 ×3; 71045; 70450; 93880; 99291; 93005; 94640 ×10; 96376 ×2; 96372 ×2; 96365; 96366; 96375; 84443; 83735 ×2; 84100 ×2; 80048 ×2; 82803; 83880; 82948 ×7; 70553; 70544; 36600; 94660; 96367; G0378 ×44; J1650 ×2; J2920 ×5; J3490 ×4; A9575

== ENCOUNTER → 2022-08-05 | Outpatient (CLI) | payer OTHER ==
[~2022-08-05] MED LIST changes: -AMLO-257 PO; -AMOX-426 PO; -AZIT500T4 PO; -METO-409 PO; +PIND10TA2 PO
== END | disposition home or self-care (01) ==
LOC: RAH 13:27
PROVIDERS: ATTEND Internal Medicine Cardiovascular Disease
DX: Z13.6 Encounter for screening for cardiovascular disorders (principal); I51.5 Myocardial degeneration
CPT/HCPCS: 75571